=== PATIENT | female | born 1950 | race Caucasian/White ===

== ENCOUNTER 2018-03-06 08:16 | Day surgery (SDC) | payer MEDICARE, OTHER ==
[~2018-03-06] VITALS: Ht 160 cm; Wt 80.0 kg
[~2018-03-06 08:16] MED LIST: CHOLESTEROL LOWERING; CODACE30 PO; Calcium Carbon500 M1; IBUP400; INHALER; MEDICAL MARIJUANA; OXYC5 PO
== END 2018-03-06 11:03 | disposition home or self-care (01) ==
LOC: ORSCSDS 08:16
PROVIDERS: Internal Medicine Gastroenterology
PROC: 0DBN8ZX Excision of Sigmoid Colon, Via Natural or Artificial Opening Endoscopic, Diagnostic (ICD-10-PCS; principal; 2018-03-06 10:00)
PROC: 0DBM8ZX Excision of Descending Colon, Via Natural or Artificial Opening Endoscopic, Diagnostic (ICD-10-PCS; principal; 2018-03-06 10:00)
DX: Z85.048 Personal history of other malignant neoplasm of rectum, rectosigmoid junction, and anus (principal); D12.4 Benign neoplasm of descending colon; K63.5 Polyp of colon; E78.5 Hyperlipidemia, unspecified; I10 Essential (primary) hypertension; Z86.010 Personal history of colon polyps; F17.210 Nicotine dependence, cigarettes, uncomplicated; Z79.899 Other long term (current) drug therapy
CPT/HCPCS: 88305

== ENCOUNTER 2022-04-08 09:45 | Day surgery (SDC) | payer MEDICARE, OTHER ==
[~2022-04-08] VITALS: Ht 160 cm; Wt 73.7 kg
[~2022-04-08 09:45] MED LIST changes: +PRAV20 PO; +TUDORZA PRESS400 MC1
--- NOTE | 2022-04-08 10:31 | NUR ---
04/08/22 Prema Scott @ 1027, WILNER @ 2352
--- NOTE | 2022-04-08 11:22 | NUR ---
04/08/22 1122 MADAI HENRY ASSISTED PT DIRECTLY INTO WC THIS IS WHAT SHE USES AT HOME.
== END 2022-04-08 11:30 | disposition home or self-care (01) ==
LOC: ORSCSDS 09:45
PROVIDERS: Ophthalmology
PROC: 08RJ3JZ Replacement of Right Lens with Synthetic Substitute, Percutaneous Approach (ICD-10-PCS; principal; 2022-04-08 11:00)
DX: H25.13 Age-related nuclear cataract, bilateral (principal); Z85.038 Personal history of other malignant neoplasm of large intestine; F17.210 Nicotine dependence, cigarettes, uncomplicated; Z79.899 Other long term (current) drug therapy
CPT/HCPCS: J2001; J2250; J3010; J3301; J7040; V2632

== ENCOUNTER 2022-04-12 07:34 | Emergency (ER) | payer MEDICARE, OTHER ==
[~2022-04-12] VITALS: Ht 160 cm; Wt 73.5 kg
[2022-04-12 09:26] LABS: Hemoglobin 9.2 g/dL (11.5-16.0)
[2022-04-12 19:25] LABS: Influenza A, PCR NEGATIVE (NEGATIVE); Influenza B, PCR NEGATIVE (NEGATIVE); Resp Syncytial Virus, PCR NEGATIVE (NEGATIVE); SARS-Cov-2 (COVID-19) PCR, MMC NEGATIVE (NEGATIVE)
== END 2022-04-12 20:10 | disposition short-term general hospital (02) ==
LOC: ER 07:34
PROVIDERS: Emergency Medicine; Family Medicine
DX: T83.098A Other mechanical complication of other urinary catheter, initial encounter (principal); R33.9 Retention of urine, unspecified; R31.9 Hematuria, unspecified; Z93.3 Colostomy status; F17.210 Nicotine dependence, cigarettes, uncomplicated; Y82.9 Unspecified medical devices associated with adverse incidents; Z20.822 Contact with and (suspected) exposure to COVID-19
CPT/HCPCS: 0241U; 51702; 85014; 85018

== ENCOUNTER 2022-04-29 09:46 | Day surgery (SDC) | payer MEDICARE, OTHER ==
[~2022-04-29] VITALS: Ht 160 cm; Wt 72.2 kg
--- NOTE | 2022-04-29 10:09 | NUR ---
04/29/22 1009 Jacqueline Hernandez LEFT EYE @ 1005 WILNER LEFT EYE @ 1007 BY [facility].RAIMUNDO
== END 2022-04-29 12:02 | disposition home or self-care (01) ==
LOC: ORSCSDS 09:46
PROVIDERS: Ophthalmology
PROC: 08RK3JZ Replacement of Left Lens with Synthetic Substitute, Percutaneous Approach (ICD-10-PCS; principal; 2022-04-29 11:00)
DX: H25.12 Age-related nuclear cataract, left eye (principal); Z96.1 Presence of intraocular lens; H52.4 Presbyopia; I63.9 Cerebral infarction, unspecified; G81.91 Hemiplegia, unspecified affecting right dominant side; Z79.899 Other long term (current) drug therapy; F17.210 Nicotine dependence, cigarettes, uncomplicated
CPT/HCPCS: J2001; J2250; J3010; J3301; J7040; V2632

== ENCOUNTER → 2023-07-21 | Outpatient (CLI) | payer MEDICARE, OTHER ==
[2023-07-21 14:53] LABS: Source, Urine Clean Catch
[2023-07-21 17:57] LABS: Appearance, Urine Clear (Clear); Bilirubin, Urine Neg (Neg); Blood, Urine Neg (Neg); Glucose Qualitative, Urine Neg (Neg); Ketones, Urine Neg (Neg); Leukocyte Esterase, Urine Neg (Neg); Nitrite, Urine Neg (Neg); Protein, Urine Neg (Neg); Specific Gravity, Urine 1.015 (1.003-1.022); Urobilinogen, Urine NORM (Normal); pH, Urine 6.5 (5.0-8.0)
[2023-07-21 18:17] LABS: Color, Urine Pale Yellow (P-Yellow)
== END | disposition home or self-care (01) ==
LOC: LAB SHORT 11:35 → LAB 11:35
PROVIDERS: Nurse Practitioner Family
DX: I10 Essential (primary) hypertension (principal)
CPT/HCPCS: 81003

== ENCOUNTER 2024-04-15 22:27 | Inpatient (IN) | payer MEDICARE, OTHER ==
[~2024-04-15] VITALS: Ht 160 cm; Wt 77.1 kg
[2024-04-15 23:14] LABS: BASOPHILS ABSOLUTE AUTO 0.04 K/mm3 (0.00-0.23); BASOPHILS PERCENT AUTO 0 % (0-2); EOSINOPHILS ABSOLUTE AUTO 0.03 K/mm3 (0.00-0.68); EOSINOPHILS PERCENT AUTO 0 % (0-6); Hematocrit 44.8 % (33.0-51.0); Hemoglobin 15.3 g/dL (11.5-16.0); IMMATURE GRAN ABSOLUTE AUTO 0.06 K/mm3 (0.00-0.10); IMMATURE GRAN PERCENT AUTO 1 % (0-1); LYMPHOCYTES ABSOLUTE AUTO 1.33 K/mm3 (0.84-5.20); LYMPHOCYTES PERCENT AUTO 12 % (21-46); MONOCYTES ABSOLUTE AUTO 0.82 K/mm3 (0.16-1.47); MONOCYTES PERCENT AUTO 7 % (4-13); Mean Corpuscular HGB 30.8 pg (26.0-34.0); Mean Corpuscular HGB Conc 34.2 g/dL (31.5-36.5); Mean Corpuscular Volume 90 fL (80-100); Mean Platelet Volume 9.9 fL (9.1-12.4); NEUTROPHILS ABSOLUTE AUTO 9.32 K/mm3 (1.96-9.15); NEUTROPHILS PERCENT AUTO 80 % (41-73); Platelet Count 402 K/mm3 (150-400); RDW Coefficient Variation 12.7 % (11.7-14.2); RDW Standard Deviation 42.1 fL (35.1-46.3); Red Blood Cell Count 4.97 M/mm3 (3.80-5.20)
[2024-04-15 23:32] LABS: Albumin, Blood 3.7 g/dL (3.4-5.0); Albumin/Globulin Ratio 0.9 (0.8-1.8); Bilirubin, Total 0.8 mg/dL (0.1-1.0); Bun/Creatinine Ratio 45.9 (12.0-20.0); Calcium, Blood 10.1 mg/dL (8.5-10.1); Creatinine, Blood 0.74 mg/dL (0.40-1.00); Globulin, Blood 3.9 g/dL (2.2-4.0); Magnesium, Blood 2.1 mg/dL (1.6-2.4); Potassium, Blood 3.4 mmol/L (3.5-5.5); Total Protein, Blood 7.6 g/dL (6.4-8.2)
[2024-04-15] MEDS ORDERED: Ondansetron HCl 2 MG / ML 2ML Vial IV ONE (23:40)
[2024-04-15] MEDS ORDERED: HYDROmorphone HCl/Pf 1MG SYR IV ONE (23:40)
[2024-04-15] MEDS ORDERED: Lactated Ringer's 1,000 ML IV ONE (23:40)
[2024-04-16 01:24] LABS: Source, Urine Clean Catch
[2024-04-16 01:27] LABS: Bilirubin, Urine Neg (Neg); Blood, Urine 3+ (Neg); Glucose Qualitative, Urine Neg (Neg); Ketones, Urine 3+ (Neg); Leukocyte Esterase, Urine 1+ (Neg); Nitrite, Urine Neg (Neg); Protein, Urine 2+ (Neg); Urobilinogen, Urine NORM (Normal); pH, Urine 6.5 (5.0-8.0)
[2024-04-16 01:28] LABS: Appearance, Urine Clear (Clear); Color, Urine Yellow (P-Yellow)
[2024-04-16 01:47] LABS: Bacteria Rare /hpf; Red Blood Cells, Urine 0-2 /hpf (0-2); Squamous Epithelial Cells Few /hpf (Few); White Blood Cells, Urine 0-2 /hpf (0-5)
[2024-04-16] MEDS ORDERED: FentaNYL Citrate 50 MCG/ML 2 ML Injection IV PRN (04:10)
[2024-04-16] MEDS ORDERED: Ondansetron HCl 2 MG / ML 2ML Vial IV PRN (04:10)
[2024-04-16] MEDS ORDERED: NS 1,000 ML IV SCH ×2 (04:10→16:55)
[2024-04-16] MEDS ORDERED: Potassium Chloride 40 MEQ in NS 250 ML IV STA (06:17)
[2024-04-16 09:50] VITALS: BP 143/54
--- NOTE | 2024-04-16 10:47 | NUR ---
ADMISSION: REPORT RECEIVED FROM ED RN. PT TO UNIT AT ABOUT 1000, A/O, VSS. PT TRANSFERED FROM BED TO [facility] WITH 2 PERSON ASSIST. NGT TO ALEXI, MICKI AMT BROWN OUTPUT. PT DENIES N/V OR PAIN AT THIS TIME. OSTOMY AT LLQ INTACT, CAN FEEL HARDENED STOOL. BAG IS NOT SEE-THROUGH. PT ORIENTED TO ROOM AND CALL LIGHT, INSTRUCTED TO USE CALL LIGHT FOR OOB ASSISTANCE. ADMISSION QUESTIONS, MED REC COMPLETED. REPORT PASSED TO JAMIN DOWELL
[2024-04-16 12:22] LABS: BASOPHILS ABSOLUTE AUTO 0.02 K/mm3 (0.00-0.23); BASOPHILS PERCENT AUTO 0 % (0-2); EOSINOPHILS ABSOLUTE AUTO 0.01 K/mm3 (0.00-0.68); EOSINOPHILS PERCENT AUTO 0 % (0-6); Hematocrit 41.9 % (33.0-51.0); IMMATURE GRAN ABSOLUTE AUTO 0.03 K/mm3 (0.00-0.10); IMMATURE GRAN PERCENT AUTO 0 % (0-1); LYMPHOCYTES ABSOLUTE AUTO 0.87 K/mm3 (0.84-5.20); LYMPHOCYTES PERCENT AUTO 11 % (21-46); MONOCYTES ABSOLUTE AUTO 0.66 K/mm3 (0.16-1.47); MONOCYTES PERCENT AUTO 8 % (4-13); Mean Corpuscular HGB 30.6 pg (26.0-34.0); Mean Corpuscular HGB Conc 33.4 g/dL (31.5-36.5); Mean Corpuscular Volume 92 fL (80-100); Mean Platelet Volume 9.3 fL (9.1-12.4); NEUTROPHILS ABSOLUTE AUTO 6.44 K/mm3 (1.96-9.15); NEUTROPHILS PERCENT AUTO 80 % (41-73); Platelet Count 329 K/mm3 (150-400); RDW Coefficient Variation 12.6 % (11.7-14.2); RDW Standard Deviation 42.3 fL (35.1-46.3); Red Blood Cell Count 4.58 M/mm3 (3.80-5.20); White Blood Cell Count 8.03 K/mm3 (4.00-11.30)
[2024-04-16 12:41] LABS: Albumin/Globulin Ratio 0.9 (0.8-1.8); Bilirubin, Total 0.6 mg/dL (0.1-1.0); Bun/Creatinine Ratio 31.9 (12.0-20.0); Calcium, Blood 9.6 mg/dL (8.5-10.1); Creatinine, Blood 0.85 mg/dL (0.40-1.00); Globulin, Blood 3.3 g/dL (2.2-4.0); Potassium, Blood 3.8 mmol/L (3.5-5.5); Total Protein, Blood 6.3 g/dL (6.4-8.2)
--- NOTE | 2024-04-16 15:41 | NUR ---
Patient is lying in bed and alert. She tells me about her medical conditions and the struggles that she has had. She informs me that she has no cheondoism preferences and that she is inspired and strengthened by her family. Patient discribes what it is like to be her in this season and how she has darker moments. We explore ways to manage those challenging times better. SHe voices appreciation for the gentle certified credit counselor.
[2024-04-16 16:27] VITALS: BP 145/56
--- NOTE | 2024-04-16 17:45 | NUR ---
SHIFT SUMMARY; PATIENT ER ADMIT THIS AM AT SHIFT CHANGE. SHE HAS A COLOSTOMY AND IS ADMITTED FOR A SBO. NONSURGICAL PER REPORT. SHE HAS AN NG TUBE PRESENT AND BLACK DRAINAGE NOTED IN SUCTION CANISTER. OK FOR ICE CHIPS PER . IV FLUIDS TO INFUSE ANOTHER 2 BAGS NS AT 100ML/HR ORDERED. PATIENT IS AO 4. SCABS TO LOWER EXTREMITIES IN VARIOUS STAGES OF HEALING. LUNGS ARE CLEAR TO AUSCULTATION. PATIENT REMAINS NPO. DENIES ANY PAIN OR DISCOMFRT. USES CALL LIGHT APPROPRIATELY. ONE PERSON ASSIST TO BEDSIDE COMMODE.
[2024-04-16 21:20] VITALS: BP 134/50
[2024-04-17 05:39] VITALS: BP 147/55
[2024-04-17 06:03] LABS: BASOPHILS ABSOLUTE AUTO 0.04 K/mm3 (0.00-0.23); BASOPHILS PERCENT AUTO 1 % (0-2); EOSINOPHILS ABSOLUTE AUTO 0.08 K/mm3 (0.00-0.68); EOSINOPHILS PERCENT AUTO 1 % (0-6); Hematocrit 38.2 % (33.0-51.0); Hemoglobin 12.4 g/dL (11.5-16.0); IMMATURE GRAN ABSOLUTE AUTO 0.05 K/mm3 (0.00-0.10); IMMATURE GRAN PERCENT AUTO 1 % (0-1); LYMPHOCYTES ABSOLUTE AUTO 1.48 K/mm3 (0.84-5.20); LYMPHOCYTES PERCENT AUTO 19 % (21-46); MONOCYTES ABSOLUTE AUTO 0.67 K/mm3 (0.16-1.47); MONOCYTES PERCENT AUTO 9 % (4-13); Mean Corpuscular HGB 30.6 pg (26.0-34.0); Mean Corpuscular HGB Conc 32.5 g/dL (31.5-36.5); Mean Corpuscular Volume 94 fL (80-100); Mean Platelet Volume 9.3 fL (9.1-12.4); NEUTROPHILS PERCENT AUTO 71 % (41-73); Platelet Count 329 K/mm3 (150-400); RDW Coefficient Variation 12.6 % (11.7-14.2); RDW Standard Deviation 43.8 fL (35.1-46.3); Red Blood Cell Count 4.05 M/mm3 (3.80-5.20); White Blood Cell Count 7.92 K/mm3 (4.00-11.30)
[2024-04-17 06:39] LABS: Albumin, Blood 2.7 g/dL (3.4-5.0); Albumin/Globulin Ratio 0.9 (0.8-1.8); Bilirubin, Total 0.6 mg/dL (0.1-1.0); Bun/Creatinine Ratio 34.6 (12.0-20.0); Calcium, Blood 8.6 mg/dL (8.5-10.1); Creatinine, Blood 0.69 mg/dL (0.40-1.00); Potassium, Blood 3.2 mmol/L (3.5-5.5); Total Protein, Blood 5.7 g/dL (6.4-8.2)
[2024-04-17 07:46] VITALS: BP 160/54
[2024-04-17] MEDS ORDERED: Potassium Chloride 40 MEQ in NS 250 ML IV ONE (08:50)
[2024-04-17 15:28] VITALS: BP 154/65
--- NOTE | 2024-04-17 15:39 | NUR ---
SHIFT SUMMARY; PATIENT RECEIVED A IV CONTRAST SMALL BOWEL FOLLOW THROUGH XRAY. NG TUBE IS DISCONNECTED AT THIS TIME PER RADIOLOGY AND WILL NOT BE RECONNECTED UNTIL AFTER ALL REPEAT XRAYS. PATIENT MEDICATED WITH FENTANYL X 2 50MCG IVP FOR SEVERE PAIN. AND WITH ZOFRAN 4MG IVP FOR NAUSEA. 1800ML OUT IN SUCTION CANNISTER DARK BLACK FLUIDS. PATIENT IS NOTED TO HAVE SMALL FIRM STOOL IN HER OSTOMY BAG. PER HE WILL RE CHECK IN THE AM TO SEE IF SURGERY IS INDICATED. VITAL SIGNS REMAIN STABLE AND PATIENT IS AO X 4. IV FLUIDS INFUSING ORDERED AND THEN WILL BE SALINE LOCKED AFTER 2ND BAG NS ADMIN. OK FOR ICE CHIPS PER GIOVANI MAYA.
[2024-04-17 19:24] VITALS: BP 163/60
[2024-04-18] VITALS (19 sets, daily range): BP systolic 107–152; BP diastolic 40–86
--- NOTE | 2024-04-18 04:06 | NUR ---
R DEVELOPER SUMMARY VSS. NG TUBE FOR ABD SUCTIONING CONTINUES FOR PT DX OF SMALL BOWEL OBSTRUCTION. TOLERATES ICE CHIPS FOR ORAL DRYNESS. RETURNS OF SUCTIONING ARE DARK BROWNISH FLUIDS. ABD SOFT TO TOUCH. ALERT AND ORIENTED. HAS BEEN RESTING QUIETLY WITH OCCASIONAL INTERRUPTION TO VOID AND/OR REQUEST PAIN MEDS. SEE MAR FOR DETAILS. ABLE TO REPOSITION SELF IN BED FOR COMFORT AND SKIN MAINTENANCE. CALL LIGHT IN REACH, RAILS UP X 2 AND BED IN LOW POSITION FOR SAFETY. WILL CONTINUE TO MONITOR
[2024-04-18] MEDS ORDERED: NS 1,000 ML IV SCH (09:05)
[2024-04-18] MEDS ORDERED: CeFAZolin Sodium 2,000 MG in NS 100 ML IV SCH (09:50)
[2024-04-18] MEDS ORDERED: NS 500 ML IV SCH (10:10)
[2024-04-18 10:19] LABS: Hematocrit 43.9 % (33.0-51.0); Hemoglobin 14.4 g/dL (11.5-16.0); Mean Corpuscular HGB 30.6 pg (26.0-34.0); Mean Corpuscular HGB Conc 32.8 g/dL (31.5-36.5); Mean Corpuscular Volume 93 fL (80-100); Mean Platelet Volume 9.1 fL (9.1-12.4); Platelet Count 386 K/mm3 (150-400); RDW Coefficient Variation 12.4 % (11.7-14.2)
[2024-04-18 10:39] LABS: Albumin, Blood 3.1 g/dL (3.4-5.0); Albumin/Globulin Ratio 0.8 (0.8-1.8); Bilirubin, Total 0.5 mg/dL (0.1-1.0); Bun/Creatinine Ratio 32.9 (12.0-20.0); Calcium, Blood 9.4 mg/dL (8.5-10.1); Creatinine, Blood 0.76 mg/dL (0.40-1.00); Globulin, Blood 3.7 g/dL (2.2-4.0); Potassium, Blood 3.5 mmol/L (3.5-5.5); Total Protein, Blood 6.8 g/dL (6.4-8.2)
[2024-04-18] MEDS ORDERED: Lactated Ringer's 1,000 ML IV SCH (10:40)
[2024-04-18 10:42] LABS: BAND PERCENT MAN 4 % (0-8); BASOPHILS PERCENT MAN 0 % (0-2); EOSINOPHILS ABSOLUTE MAN 0.08 K/mm3 (0.00-0.68); EOSINOPHILS PERCENT MAN 1 % (0-6); LYMPHOCYTES ABSOLUTE MAN 1.21 K/mm3 (0.84-5.20); LYMPHOCYTES PERCENT MAN 15 % (21-46); MONOCYTES ABSOLUTE MAN 0.72 K/mm3 (0.16-1.47); MONOCYTES PERCENT MAN 9 % (4-13); NEUTROPHILS ABSOLUTE MAN 6.07 K/mm3 (1.96-9.15); SEG NEUTROPHILS PERCENT MAN 71 % (41-73); TOTAL CELLS COUNTED 100
[2024-04-18] MEDS ORDERED: Ipratropium/Albuterol SulF 2.5-0.5MG/3 ML Amp INH ONE (10:55)
[2024-04-18] MEDS ORDERED: Bupivacaine 0.5% Inj 50 ML Vial ONE (11:17)
--- NOTE | 2024-04-18 11:31 | NUR ---
PT HERE FROM 324 VIA ANGELA. 22 G IV IN LAC FLUSHES EASILY BUT DOES NOT RUN WELL TO GRAVITY. 18 G IV PLACED IN RFA. PT W/ WHEEZES IN BASES AND 02@ 90% ON RA. 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 Pt verbalizes understanding. History, Chart, Medications and Allergies reviewed before start of procedure.Patient confirms NPO status and agrees with scheduled surgery.
[2024-04-18] MEDS ORDERED: FentaNYL Citrate 50 MCG/ML 5 ML Injection ONE ×2 (11:43→14:33)
[2024-04-18] MEDS ORDERED: propofoL 20 ML IV ONE (11:44)
[2024-04-18] MEDS ORDERED: Ondansetron HCl 2 MG / ML 2ML Vial ONE (11:50)
[2024-04-18] MEDS ORDERED: Ketorolac Tromethamine 30mg Vial ONE (11:50)
[2024-04-18] MEDS ORDERED: Dexamethasone Sod Phos 10 MG/ML 1ML VIAL ONE (11:50)
[2024-04-18] MEDS ORDERED: Rocuronium Bromide 10 MG/ML 5ML Injection IV ONE ×2 (12:57)
--- NOTE | 2024-04-18 15:33 | NUR ---
PT TAKEN TO SURGERY 1042, HAD STARTED 500ML NS BOLUS, RECEIVED 200ML. HAD RECEIVED FENT 50MCG AT 0900. SL TO LAC FLUSHES WELL. SLIDE TX BED TO STRETCHER. NG DISCONNECTED. 1L EMPTIED THIS AM, BILE SECRETIONS. PT DENIED NAUSEA AND PAIN WAS CONTROLLED WITH FENT.
[2024-04-18] MEDS ORDERED: Sugammadex Sodium 200 MG/2ML SDV (100 MG/ML) ONE (15:39)
--- NOTE | 2024-04-18 16:54 | NUR ---
ATTEMPTED TO GET REPORT FROM MEDICAL FLOOR RN AT THIS TIME, NO RETURN CALL
--- NOTE | 2024-04-18 17:44 | NUR ---
POST OP: REPORT RECEIVED FROM ANTIQUE AUTOMOBILES REPAIRER. PT TO UNIT AT 1705. PT IS A/O, VSS. PT DENIES PAIN OR N/V AT THIS TIME. NGT SECURE TO NOSE, LIS STARTED AND BROWN OUTPUT NOTED. ABD SAQIB COMPRESSED AND CDI AND COLOSTOMY WNL, NO OUTPUT NOTED TO COLOSTOMY. CARLOS HAS YELLOW URINE AND DRAINING TO GRAVITY. PT GIVEN CALL LIGHT AND ORIENTED TO ROOM.
[2024-04-19 04:35] VITALS: BP 148/51
--- NOTE | 2024-04-19 05:38 | NUR ---
SHIFT SUMMARY POD 1 EX LAP WITH HERNIA REPAIR, COLECTOMY AND HÉCTOR PT ABLE TO SLEEP DURING THE NIGHT. DENIES ANY PAIN DURING THE NIGHT. TOLERATING SIPS AND CHIPS. PT HAS HAD NO OUTPUT OR GAS IN COLOSTOMY. CARLOS DRAINING YELLOW URINE TO GRAVITY. PT HAS NOT BEEN OOB YET. VSS. PY ON 1L NC FOR SUPPORT. NO OTHER CONCERNS AT THIS, CALL LIGHT WITHIN REACH
[2024-04-19 07:51] VITALS: BP 133/49
[2024-04-19] MEDS ORDERED: DEXTROMETHORPHAN/BENZOCAINE 1 EACH LOZENGE MT PRN (09:05)
[2024-04-19] MEDS ORDERED: Phenol/Sodium Phenolate Oral Spray 180 ML MM PRN (09:05)
[2024-04-19 09:41] LABS: Hematocrit 37.4 % (33.0-51.0); Hemoglobin 12.2 g/dL (11.5-16.0); Mean Corpuscular HGB 30.5 pg (26.0-34.0); Mean Corpuscular HGB Conc 32.6 g/dL (31.5-36.5); Mean Corpuscular Volume 94 fL (80-100); Mean Platelet Volume 9.3 fL (9.1-12.4); Platelet Count 332 K/mm3 (150-400); RDW Coefficient Variation 12.5 % (11.7-14.2); RDW Standard Deviation 42.6 fL (35.1-46.3); White Blood Cell Count 8.06 K/mm3 (4.00-11.30)
[2024-04-19 10:06] LABS: BAND PERCENT MAN 7 % (0-8); BASOPHILS PERCENT MAN 0 % (0-2); EOSINOPHILS PERCENT MAN 0 % (0-6); LYMPHOCYTES ABSOLUTE MAN 0.72 K/mm3 (0.84-5.20); LYMPHOCYTES PERCENT MAN 9 % (21-46); MONOCYTES ABSOLUTE MAN 0.72 K/mm3 (0.16-1.47); MONOCYTES PERCENT MAN 9 % (4-13); SEG NEUTROPHILS PERCENT MAN 75 % (41-73); TOTAL CELLS COUNTED 100
[2024-04-19 10:25] LABS: Albumin, Blood 2.1 g/dL (3.4-5.0); Albumin/Globulin Ratio 0.7 (0.8-1.8); Bilirubin, Total 0.4 mg/dL (0.1-1.0); Bun/Creatinine Ratio 39.5 (12.0-20.0); Creatinine, Blood 0.58 mg/dL (0.40-1.00); Globulin, Blood 3.2 g/dL (2.2-4.0); Potassium, Blood 3.1 mmol/L (3.5-5.5); Total Protein, Blood 5.3 g/dL (6.4-8.2)
--- NOTE | 2024-04-19 10:52 | NUR ---
PT HAS OSTOMY IN PLACE TO LLQ WHICH WAS FROM PRIOR SURGERY, STOMA PINK. SCANT BROWN LIQUID DRAINAGE IN BAG
[2024-04-19] MEDS ORDERED: Potassium Chloride 40 MEQ in NS 250 ML IV ONE (12:15)
[2024-04-19] MEDS ORDERED: Benzocaine Oral Spray 0.5ML UD MT PRN (13:00)
[2024-04-19 15:30] VITALS: BP 127/45
--- NOTE | 2024-04-19 17:19 | NUR ---
PT SITTING UP IN CHAIR FOR THE LAST SEVERAL HOURS. PT REPORTS PAIN CONTROLLED WITH IV MEDS, DISCUSSED WITH PT TO REQUEST MEDS WHEN PAIN STARTS TO INCREASE SHE HAS WAITED UNTIL HER PAIN IS 7-8. SAQIB IN PLACE WITH SCANT DRIED BLOODY DRAINAGE. ABD GAUZE SITES X3 CLEAN DRY AND INTACT. NG WITH NO OUTPUT THIS SHIFT, CARLOS WITH CLEAR YELLOW URINE
[2024-04-19 19:05] VITALS: BP 150/57
[2024-04-20 02:26] VITALS: BP 143/49
--- NOTE | 2024-04-20 04:30 | NUR ---
SHIFT SUMMARY POD 2 SB RESECTION, HERNIA REPAIR AND HÉCTOR PT ABLE TO REST DURING THE NIGHT. PT WANTED TO STAY IN RECLINER FOR THE NIGHT. PAIN MANAGED PER EMAR. CARLOS DRAINING TO GRAVITY, YELLOW URINE. OSTOMY HAVING BROWN OUTPUT, WITH GAS. PT HAS X3 LAP SITES WITH GAUZE AND TEG ALL C/D/I. MIDLINE INSICION WITH SAQIB HAS SOME SLIGHT DRAINAGE AT THE BOTTOM, SAQIB STILL COMPRESSED. NG TUBE HAVING VERY LITTLE OUTPUT. TOLERATING SIPS AND CHIPS. VSS, NO OTHER CONCERNS AT THIS TIME, CALL LIGHT WITHIN REACH
[2024-04-20 04:43] LABS: Hematocrit 34.3 % (33.0-51.0); Hemoglobin 10.9 g/dL (11.5-16.0); Mean Corpuscular HGB 30.1 pg (26.0-34.0); Mean Corpuscular HGB Conc 31.8 g/dL (31.5-36.5); Mean Corpuscular Volume 95 fL (80-100); Mean Platelet Volume 9.5 fL (9.1-12.4); Platelet Count 312 K/mm3 (150-400); RDW Coefficient Variation 12.7 % (11.7-14.2); RDW Standard Deviation 43.9 fL (35.1-46.3); Red Blood Cell Count 3.62 M/mm3 (3.80-5.20); White Blood Cell Count 10.69 K/mm3 (4.00-11.30)
[2024-04-20 05:17] LABS: Albumin, Blood 1.8 g/dL (3.4-5.0); Albumin/Globulin Ratio 0.6 (0.8-1.8); Bilirubin, Total 0.4 mg/dL (0.1-1.0); Bun/Creatinine Ratio 25.8 (12.0-20.0); Calcium, Blood 7.4 mg/dL (8.5-10.1); Creatinine, Blood 0.5 mg/dL (0.40-1.00); Globulin, Blood 3.1 g/dL (2.2-4.0); Potassium, Blood 3.2 mmol/L (3.5-5.5); Total Protein, Blood 4.9 g/dL (6.4-8.2)
[2024-04-20 05:20] LABS: BAND PERCENT MAN 9 % (0-8); BASOPHILS PERCENT MAN 0 % (0-2); EOSINOPHILS ABSOLUTE MAN 0.21 K/mm3 (0.00-0.68); EOSINOPHILS PERCENT MAN 2 % (0-6); LYMPHOCYTES ABSOLUTE MAN 0.96 K/mm3 (0.84-5.20); LYMPHOCYTES PERCENT MAN 9 % (21-46); METAMYELOCYTE ABSOLUTE MAN 0.21 K/mm3 (0.00-0.00); METAMYELOCYTE PERCENT MAN 2 % (0-0); MONOCYTES ABSOLUTE MAN 0.85 K/mm3 (0.16-1.47); MONOCYTES PERCENT MAN 8 % (4-13); MYELOCYTE PERCENT MAN 1 % (0-0); NEUTROPHILS ABSOLUTE MAN 8.33 K/mm3 (1.96-9.15); SEG NEUTROPHILS PERCENT MAN 69 % (41-73); TOTAL CELLS COUNTED 100
[2024-04-20 07:19] VITALS: BP 127/43
[2024-04-20] MEDS ORDERED: Potassium Chloride 40 MEQ in NS 250 ML IV ONE (08:35)
[2024-04-20] MEDS ORDERED: OxyCODONE HCL 5 MG TAB PO PRN (09:10)
[2024-04-20] MEDS ORDERED: Acetaminophen 325 MG TABLET PO PRN (09:10)
[2024-04-20] MEDS ORDERED: Potassium Chloride 20 MEQ/15 ML UDC PO ONE ×2 (10:00→12:00)
[2024-04-20 14:06] VITALS: BP 156/55
[2024-04-20] MEDS ORDERED: Calcium Carbonate 500 MG Tab Chew PO PRN (15:10)
[2024-04-20] MEDS ORDERED: Famotidine 20 MG Tab PO SCH (16:00)
--- NOTE | 2024-04-20 16:28 | NUR ---
SHIFT SUMMARY POD2 MIDLINE SAQIB/LAP SITES CDI. A&OX4, VSS/RA, OSTOMY WITH LIQUID BROWN OUPUT, BRENDA PO FULL LIQUID DIET/ADV TO REG FOR DINNER, VOIDING, AMB:2PP STAND PIVOT - UP TO CHAIR, PAIN MANAGED, IV SL. WILL REPORT TO ONCOMING NOC RN.
[2024-04-20 18:57] VITALS: BP 151/58
[2024-04-20] MEDS ORDERED: Lactobacil 2-S.Thermo-Bifido 1 1 Cap PO SCH (21:00)
[2024-04-21 02:05] VITALS: BP 138/52
--- NOTE | 2024-04-21 06:11 | NUR ---
SHIFT SUMMARY POD 3 SB RESECTION, HERNIA REPAIR AND HÉCTOR PT ABLE TO REST DURING THE NIGHT. PAIN MANAGED PER EMAR. TOLERAING PO INTAKE. VOIDING. OSTOMY HAVING BROWN LIQUID STOOL OUT. LAP SITES AND MIDLINE SAQIB ARE ALL C/D/I. PT HAS REMAINED ON RA ALL NIGHT. VSS NO OTHER CONCERNS AT THIS TIME, CALL LIGHT WITHIN REACH
[2024-04-21 07:02] LABS: BASOPHILS ABSOLUTE AUTO 0.06 K/mm3 (0.00-0.23); BASOPHILS PERCENT AUTO 1 % (0-2); EOSINOPHILS ABSOLUTE AUTO 0.26 K/mm3 (0.00-0.68); EOSINOPHILS PERCENT AUTO 2 % (0-6); Hematocrit 36.6 % (33.0-51.0); Hemoglobin 11.9 g/dL (11.5-16.0); IMMATURE GRAN ABSOLUTE AUTO 0.44 K/mm3 (0.00-0.10); IMMATURE GRAN PERCENT AUTO 4 % (0-1); LYMPHOCYTES ABSOLUTE AUTO 0.98 K/mm3 (0.84-5.20); LYMPHOCYTES PERCENT AUTO 9 % (21-46); MONOCYTES ABSOLUTE AUTO 0.69 K/mm3 (0.16-1.47); MONOCYTES PERCENT AUTO 6 % (4-13); Mean Corpuscular HGB 30.5 pg (26.0-34.0); Mean Corpuscular HGB Conc 32.5 g/dL (31.5-36.5); Mean Corpuscular Volume 94 fL (80-100); Mean Platelet Volume 9.1 fL (9.1-12.4); NEUTROPHILS ABSOLUTE AUTO 8.87 K/mm3 (1.96-9.15); NEUTROPHILS PERCENT AUTO 79 % (41-73); Platelet Count 326 K/mm3 (150-400); RDW Coefficient Variation 12.7 % (11.7-14.2); RDW Standard Deviation 43.8 fL (35.1-46.3)
[2024-04-21 07:13] VITALS: BP 132/60
[2024-04-21 07:28] LABS: Magnesium, Blood 1.7 mg/dL (1.6-2.4)
[2024-04-21 07:31] LABS: Anion Gap 15 mmol/L (3-11); Blood Urea Nitrogen 10 mg/dL (8-24); CO2, Blood 24 mmol/L (21-32); Chloride, Blood 99 mmol/L (98-108); Creatinine, Blood 0.53 mg/dL (0.40-1.00); Glomerular Filtration Rate 97 (60-); Glucose, Blood 83 mg/dL (70-99); Phosphorus, Blood 0.8 mg/dL (2.5-4.9); Potassium, Blood 3.3 mmol/L (3.5-5.5); Sodium, Blood 135 mmol/L (136-145)
[2024-04-21] MEDS ORDERED: Mag Sulfate 1 GM/D5% 100ML 100 ML IV STA (08:19)
[2024-04-21] MEDS ORDERED: Potassium Phosphate Dibasic 30 MM in Dextrose 5% 500 ML IV STA (08:20)
[2024-04-21] MEDS ORDERED: Sodium Phosphate 10 MM in Dextrose 5% 250 ML IV STA (08:20)
[2024-04-21] MEDS ORDERED: NS 250 ML IV PRN (13:40)
--- NOTE | 2024-04-21 15:33 | NUR ---
SHIFT SUMMARY POD 3 SBO, HERNIA REPAIR, LYSIS OF ADHESIONS. DRESSING REMAINS CDI. PT REPORTS SMALL AMOUNT OF NASUEA THAT INCREASED AFTER REGULAR DIET. EATING SLOWLY AT THIS TIME AND IMPROVEMENT OF NAUSEA WITH MEDICATION. PAIN TOLERABLE PER EMAR. PT CONTINUES TO HAVE SMALL AMOUNT OF FLATUS THROUGH STOMA. VOIDING, CALLS APPROPRIATLY. REPOSITIONING SELF IN BED, WILL CALL FOR ASSISTANCE.
[2024-04-21 16:02] VITALS: BP 148/66
[2024-04-21 19:53] VITALS: BP 166/79
[2024-04-22] VITALS (11 sets, daily range): BP systolic 59–135; BP diastolic 37–68
--- NOTE | 2024-04-22 05:22 | NUR ---
SHIFT SUMMARY: AMANDA IS A&OX4. VSS, NO ACUTE EVENTS THIS SHIFT. SHE DID HAVE ONE EPISODE OF EMESIS, APPROX 1000 ML, BUT HAS DENIED N/V SINCE. SHE HAS HAD LIQUID OUTPUT THROUGH HER OSTOMY WELL FLATUS. OSTOMY PATENT. SAQIB TO MIDLINE INCISION COMPRESSED, POWERGLIDE TO ANGEL PATENT, AND SHE USES THE BEDPAN WITH A ONE-PERSON ASSIST. SHE REPORTS HAVING DIFFICULTY TOLERATING A REGULAR DIET, THAT SHE TRIED TACO MOTA YESTERDAY AND FEELS THAT IS WHAT CAUSED HER UPSET STOMACH. SHE DID STATE THAT SHE IS TOLERATING CLEARS WITHOUT DIFFICULTY. SHE IS LYING IN BED WITH THE CALL LIGHT IN REACH. WILL GIVE REPORT TO DAY SHIFT RN.
[2024-04-22 05:41] LABS: Albumin, Blood 1.9 g/dL (3.4-5.0); Anion Gap 12 mmol/L (3-11); Blood Urea Nitrogen 13 mg/dL (8-24); Bun/Creatinine Ratio 23.7 (12.0-20.0); CO2, Blood 30 mmol/L (21-32); Calcium, Blood 7.9 mg/dL (8.5-10.1); Chloride, Blood 93 mmol/L (98-108); Creatinine, Blood 0.55 mg/dL (0.40-1.00); Glomerular Filtration Rate 96 (60-); Glucose, Blood 110 mg/dL (70-99); Magnesium, Blood 1.9 mg/dL (1.6-2.4); Phosphorus, Blood 2.3 mg/dL (2.5-4.9); Potassium, Blood 3.4 mmol/L (3.5-5.5); Sodium, Blood 132 mmol/L (136-145)
[2024-04-22] MEDS ORDERED: Mag Sulfate 1 GM/D5% 100ML 100 ML IV STA (08:39)
[2024-04-22] MEDS ORDERED: Potassium Phos/Sodium Phos 250 MG PACK PO SCH ×2 (08:40→17:00)
[2024-04-22] MEDS ORDERED: Potassium Chloride 20 MEQ/15 ML UDC PO SCH ×2 (08:40→17:00)
[2024-04-22] MEDS ORDERED: NS 1,000 ML IV ONE (19:30)
[2024-04-22] MEDS ORDERED: Adenosine 3 MG/ML 2 ML Vial IV ONE (19:50)
--- NOTE | 2024-04-22 20:00 | NUR ---
RAPID RESPONSE CALLED. RAPID RESPONSE CALLED DURING SHIFT CHANGE DUE TO HYPOTENSION AND TACHYCARDIA. PT EDUCATED ON SYMPTOMS TO REPORT AND ASSURANCE GIVEN REGARDING MONITORING POST EVENT. FOR DETAILS ON CHARTER BUS DRIVER PLEASE SEE CHARTER BUS DRIVER DOCUMENTATION. PT RESTING AND VERBALIZED FEELING BETTER, CALL LIGHT IN REACH.
--- NOTE | 2024-04-22 20:35 | NUR ---
SHIFT SUMMARY POD4 EX LAP WITH HÉCTOR, Dolly/OX4, VSS UNTIL END OF SHIFT (SEE MARKETING BUDGET ANALYST DOCUMENTATION), CALLS APPROPRIEATELY, MEDICATED FOR PAIN ONCE THIS SHIFT, SOME NAUSEA THIS SHIFT WHICH SHE WAS MEDICATED FOR AND HAD NO EMESIS. MARKETING BUDGET ANALYST CALLED DURING SHIFT CHANGE R/T HEART RATE AND LOW BP (SEE MARKETING BUDGET ANALYST AND VITALS, EKG PLACED IN CHART). REPORT GIVEN TO NOC RN TO ASSUME CARE.
[2024-04-22] MEDS ORDERED: Metoprolol Tartrate 50 MG Tab PO SCH (21:00)
[2024-04-22] MEDS ORDERED: Metoprolol Tartrate 25 MG Tab PO SCH (21:00)
[2024-04-23] VITALS (9 sets, daily range): BP systolic 103–132; BP diastolic 52–68
[2024-04-23 02:48] LABS: Albumin, Blood 1.6 g/dL (3.4-5.0); Anion Gap 14 mmol/L (3-11); Blood Urea Nitrogen 22 mg/dL (8-24); Bun/Creatinine Ratio 27.2 (12.0-20.0); CO2, Blood 27 mmol/L (21-32); Calcium, Blood 7.2 mg/dL (8.5-10.1); Chloride, Blood 96 mmol/L (98-108); Creatinine, Blood 0.81 mg/dL (0.40-1.00); Glomerular Filtration Rate 76 (60-); Glucose, Blood 109 mg/dL (70-99); Magnesium, Blood 2.1 mg/dL (1.6-2.4); Potassium, Blood 3.7 mmol/L (3.5-5.5); Sodium, Blood 133 mmol/L (136-145)
--- NOTE | 2024-04-23 07:37 | NUR ---
SHIFT SUMMARY NOC. PT HAD RAPID CALLED AT START OF SHIFT, SEE DOCUMENTATION. PT A/O X4, VSS IMPROVED T/O NIGHT. PT ON TELE, NO EVENTS REPORTED. PT'S SAQIB AND LAP SITES C/D/I. OSTOMY PRODUCING OUTPUT. PT VOIDING URINE. PT RESTED WITH EYES CLOSED AND CALL LIGHT IN REACH.
[2024-04-23 08:25] LABS: Hematocrit 31.7 % (33.0-51.0); Hemoglobin 10.7 g/dL (11.5-16.0); Mean Corpuscular HGB 30.7 pg (26.0-34.0); Mean Corpuscular HGB Conc 33.8 g/dL (31.5-36.5); Mean Corpuscular Volume 91 fL (80-100); Mean Platelet Volume 9.4 fL (9.1-12.4); Platelet Count 382 K/mm3 (150-400); RDW Coefficient Variation 12.8 % (11.7-14.2); RDW Standard Deviation 42.5 fL (35.1-46.3); Red Blood Cell Count 3.49 M/mm3 (3.80-5.20); White Blood Cell Count 13.19 K/mm3 (4.00-11.30)
[2024-04-23 09:36] LABS: BAND PERCENT MAN 7 % (0-8); BASOPHILS PERCENT MAN 0 % (0-2); EOSINOPHILS PERCENT MAN 0 % (0-6); LYMPHOCYTES ABSOLUTE MAN 0.52 K/mm3 (0.84-5.20); LYMPHOCYTES PERCENT MAN 4 % (21-46); MONOCYTES ABSOLUTE MAN 0.92 K/mm3 (0.16-1.47); MONOCYTES PERCENT MAN 7 % (4-13); NEUTROPHILS ABSOLUTE MAN 11.73 K/mm3 (1.96-9.15); SEG NEUTROPHILS PERCENT MAN 82 % (41-73); TOTAL CELLS COUNTED 100
[2024-04-23] MEDS ORDERED: Adenosine 3 MG/ML 2 ML Vial IV ONE (10:59)
[2024-04-23] MEDS ORDERED: Enoxaparin 40 MG/0.4 ML SYR SC SCH (14:00)
--- NOTE | 2024-04-23 17:41 | NUR ---
SHIFT SUMMARY POD 5 EX LAP c HERNIA REPAIR & HÉCTOR. NO ACUTE CHANGES THIS SHIFT. VSS, PT ON 2L VIA NC PRN TO MAINTAIN SAT >90%, TELE - SINUS RHYTHM @ 74. PT TOLERATING FULL LIQUID DIET. VOIDING USING BEDPAN. ESTABLISHED OSTOMY c BROWN/GREEN LIQUID OUTPUT; PASSING FLATUS. MIDLINE SAQIB C/D/I. LAP SITES x3 c GAUZE/TAPE C/D/I. PT REPORTS PAIN TOLERABLE, MEDICATED PER EMAR. CARDIOLOGY CONSULTED TODAY, NO FURTHER ORDERS, CONTINUE TO MONITOR TELE. ENC MOBILITY, WHEELCHAIR BASELINE R/T R SIDED WEAKNESS. CALL LIGHT IN REACH, BED IN LOWEST POSITION, WILL REPORT TO NOC RN.
[2024-04-24 03:46] VITALS: BP 139/66
--- NOTE | 2024-04-24 04:17 | NUR ---
SUMMARY- NO ISSUES NOTED. PT REMAINED IN SR THROUGHOUT SHIFT. PT PAIN TX ORDERED W/ RELIEF. PT DRESSINGS C/D/I. OSTOMY OUTPUT SOFT BROWN STOOL. PT HAD SOME NAUSEA THAT WAS RELIEVED WITH ZOFRAN. CALL LIGHT IN REACH.
[2024-04-24 04:48] LABS: Hematocrit 30.3 % (33.0-51.0); Hemoglobin 10.1 g/dL (11.5-16.0); Mean Corpuscular HGB 30.6 pg (26.0-34.0); Mean Corpuscular HGB Conc 33.3 g/dL (31.5-36.5); Mean Corpuscular Volume 92 fL (80-100); Mean Platelet Volume 9.3 fL (9.1-12.4); Platelet Count 380 K/mm3 (150-400); RDW Coefficient Variation 12.9 % (11.7-14.2); RDW Standard Deviation 43.3 fL (35.1-46.3); White Blood Cell Count 11.56 K/mm3 (4.00-11.30)
[2024-04-24 05:04] LABS: Bun/Creatinine Ratio 25.2 (12.0-20.0); Calcium, Blood 7.2 mg/dL (8.5-10.1); Creatinine, Blood 0.56 mg/dL (0.40-1.00); Potassium, Blood 3.5 mmol/L (3.5-5.5)
[2024-04-24 05:22] LABS: BAND PERCENT MAN 4 % (0-8); BASOPHILS PERCENT MAN 0 % (0-2); EOSINOPHILS ABSOLUTE MAN 0.34 K/mm3 (0.00-0.68); EOSINOPHILS PERCENT MAN 3 % (0-6); LYMPHOCYTES % ATYPICAL MANUAL 1 % (0-0); LYMPHOCYTES ABSOLUTE MAN 1.04 K/mm3 (0.84-5.20); LYMPHOCYTES PERCENT MAN 8 % (21-46); MONOCYTES ABSOLUTE MAN 1.15 K/mm3 (0.16-1.47); MONOCYTES PERCENT MAN 10 % (4-13); NEUTROPHILS ABSOLUTE MAN 8.78 K/mm3 (1.96-9.15); PLASMA CELL ABSOLUTE MAN 0.23 K/mm3 (0.00-0.00); PLASMA CELLS PERCENT MAN 2 % (0-0); SEG NEUTROPHILS PERCENT MAN 72 % (41-73); TOTAL CELLS COUNTED 100
[2024-04-24 07:24] VITALS: BP 131/60
[2024-04-24 15:17] VITALS: BP 114/49
[2024-04-24 15:18] VITALS: BP 114/49
--- NOTE | 2024-04-24 17:15 | NUR ---
SHIFT SUMMARY POD 6 EX LAP c HERNIA REPAIR & HÉCTOR. NO ACUTE CHANGES TODAY. VSS, PT ON 1L VIA NC TO MAINTAIN SAT >90%, TELE - NSR IN 80s. TOLERATING REGULAR DIET; PT REPORTS LACTOSE INTOLERANCE & INTERMITTENT NAUSEA c INGESTIONS, FAMILY MEMBER BROUGHT IN MCDON[place]DS/ COTTAGE CHEESE/ YOGURT FOR PT. VOIDING USING BEDPAN/BSC DEPENDING ON FATIGUE LEVEL. BROWN/GREEN OUTPUT IN OSTOMY c FLATUS. MIDLINE SAQIB C/D/I, LAP SITE x3 c MUSA C/D/I JOHN. PT AMBULATES MAX 2 PERSON ASSIST STAND/PIVOT TO BSC/CHAIR c GB; HX: CHRONIC R SIDED WEAKNESS R/T CVA - PT REPORTS FEELING INCREASINGLY WEAK. PHYSCIAL THERAPY WORKED c PT TODAY, RECOMMENDED SNF. PT REFUSED SNF, STATES SHE WANTS TO D/C TO HOME c HH. CALL LIGHT IN REACH, BED IN LOWEST POSITION, WILL REPORT TO ROSA RN.
[2024-04-24 19:33] VITALS: BP 128/44
[2024-04-24] MEDS ORDERED: Pravastatin Sodium 20 MG Tab PO SCH (21:00)
[2024-04-25 04:13] VITALS: BP 118/47
--- NOTE | 2024-04-25 05:06 | NUR ---
SHIFT SUMMARY NOC. PT A/O X4. MIDLINE SAQIB C/D/I, LAP SITES WITH MUSA OPEN TO AIR. PT VOIDING URINE AND TOLERATING PO. OSTOMY PRODUCING FLATUS. PT ON TELE AND NO REPORTED EVENTS. PT RESTED WITH EYES CLOSED AND CALL LIGHT IN REACH.
[2024-04-25 05:59] LABS: Hematocrit 30.1 % (33.0-51.0); Hemoglobin 10.1 g/dL (11.5-16.0); Mean Corpuscular HGB 30.7 pg (26.0-34.0); Mean Corpuscular HGB Conc 33.6 g/dL (31.5-36.5); Mean Corpuscular Volume 92 fL (80-100); Mean Platelet Volume 9.1 fL (9.1-12.4); Platelet Count 418 K/mm3 (150-400); RDW Coefficient Variation 12.9 % (11.7-14.2); RDW Standard Deviation 43.3 fL (35.1-46.3); Red Blood Cell Count 3.29 M/mm3 (3.80-5.20); White Blood Cell Count 9.96 K/mm3 (4.00-11.30)
[2024-04-25 06:21] LABS: Bun/Creatinine Ratio 21.3 (12.0-20.0); Calcium, Blood 7.6 mg/dL (8.5-10.1); Creatinine, Blood 0.52 mg/dL (0.40-1.00); Phosphorus, Blood 2.4 mg/dL (2.5-4.9); Potassium, Blood 3.6 mmol/L (3.5-5.5)
[2024-04-25 06:35] LABS: BAND PERCENT MAN 6 % (0-8); BASOPHILS PERCENT MAN 0 % (0-2); EOSINOPHILS ABSOLUTE MAN 0.09 K/mm3 (0.00-0.68); EOSINOPHILS PERCENT MAN 1 % (0-6); LYMPHOCYTES ABSOLUTE MAN 1.09 K/mm3 (0.84-5.20); LYMPHOCYTES PERCENT MAN 11 % (21-46); METAMYELOCYTE ABSOLUTE MAN 0.09 K/mm3 (0.00-0.00); METAMYELOCYTE PERCENT MAN 1 % (0-0); MONOCYTES ABSOLUTE MAN 0.79 K/mm3 (0.16-1.47); MONOCYTES PERCENT MAN 8 % (4-13); MYELOCYTE ABSOLUTE MAN 0.19 K/mm3 (0.00-0.00); MYELOCYTE PERCENT MAN 2 % (0-0); NEUTROPHILS ABSOLUTE MAN 7.66 K/mm3 (1.96-9.15); SEG NEUTROPHILS PERCENT MAN 71 % (41-73); TOTAL CELLS COUNTED 100
[2024-04-25 07:16] VITALS: BP 111/58
[2024-04-25] MEDS ORDERED: Acetaminophen650 M1 PO (11:07)
[2024-04-25] MEDS ORDERED: OXAYDO5 M1 PO (11:08)
[2024-04-25] MEDS ORDERED: POTASSIUM PHOSPHATE PO (11:12)
--- NOTE | 2024-04-25 12:30 | NUR ---
DISCHARGE: PACKET PRINTED AND PT EDUCATED. POWERGLIDE TO ANGEL DC'D WNL, TIP INTACT. PT GIVEN DC INSTRUCTIONS AND VERBALIZED UNDERSTANDING. SCRIPT FAXED TO [facility] AND PT GIVEN PAIN SCRIPT.
== END 2024-04-25 11:45 | disposition home health service (06) | DRG 330 ==
LOC: ER 22:27 → MEDS 04-16 02:09 → SURS 04-16 02:09 → ERHOLD 04-16 02:09 → MEDS 04-16 09:38 → SURS 04-18 16:56
PROVIDERS: Emergency Medicine; Family Medicine; Internal Medicine; Physician Assistant; Surgery; ADMIT Internal Medicine
PROC: 0D9670Z Drainage of Stomach with Drainage Device, Via Natural or Artificial Opening (ICD-10-PCS; 2024-04-16)
PROC: 0DB84ZZ Excision of Small Intestine, Percutaneous Endoscopic Approach (ICD-10-PCS; principal; 2024-04-18 11:00)
PROC: 0WQF4ZZ Repair Abdominal Wall, Percutaneous Endoscopic Approach (ICD-10-PCS; 2024-04-18 11:00)
DX: K43.0 Incisional hernia with obstruction, without gangrene (principal); E87.1 Hypo-osmolality and hyponatremia; I47.10 Supraventricular tachycardia, unspecified; K56.50 Intestinal adhesions [bands], unspecified as to partial versus complete obstruction; Z86.73 Personal history of transient ischemic attack (TIA), and cerebral infarction without residual deficits; E78.5 Hyperlipidemia, unspecified; K20.90 Esophagitis, unspecified without bleeding; Z85.048 Personal history of other malignant neoplasm of rectum, rectosigmoid junction, and anus; Z90.49 Acquired absence of other specified parts of digestive tract; Z93.3 Colostomy status; Z85.51 Personal history of malignant neoplasm of bladder; E78.00 Pure hypercholesterolemia, unspecified; Z98.890 Other specified postprocedural states; Z79.899 Other long term (current) drug therapy; Z88.8 Allergy status to other drugs, medicaments and biological substances; Z88.5 Allergy status to narcotic agent; F17.210 Nicotine dependence, cigarettes, uncomplicated; E87.6 Hypokalemia; E83.39 Other disorders of phosphorus metabolism; Z90.89 Acquired absence of other organs; J44.9 Chronic obstructive pulmonary disease, unspecified; Z99.3 Dependence on wheelchair
CPT/HCPCS: 36415; 74018; 74177; 74250; 80048; 80053; 80069; 81001; 82330; 83605; 83690; 83735; 83880; 84100; 84145; 84484; 85025; 88307; 93005; 93010; 93306; 93971; 94760; 94761; 96361; 96374-59; 96375; 97110; 97162; 99285-25; A9270; J0153; J0690; J1100; J1170; J1650; J1885; J2405; J2704; J3010; J3475; J3480; J7030; J7050; J7060; J7120; Q9967

== ENCOUNTER 2025-08-27 09:07 | Day surgery (SDC) | payer MEDICARE, OTHER ==
[2025-08-27] VITALS (11 sets, daily range): BP systolic 108–182; BP diastolic 45–70
[~2025-08-27] VITALS: Ht 160 cm; Wt 59.0 kg
[~2025-08-27 09:07] MED LIST changes: +Acetaminophen650 M1 PO; +CEFP200 PO; +ELIQUIS2.5 MG PO; +ELIQUIS5 M2 PO; +FAMO20 PO; +ONDA4 PO; +OXAYDO5 M1 PO; +POTASSIUM PHOSPHATE PO
[2025-08-27] MEDS ORDERED: TUDORZA PRESS400 MC1 IH (09:39)
[2025-08-27] MEDS ORDERED: PRAV20 PO ×2 (09:40)
[2025-08-27] MEDS ORDERED: CeFAZolin Sodium 1000 mg Vial ONE (10:09)
[2025-08-27] MEDS ORDERED: NS 50 ML IV ONE (10:10)
[2025-08-27] MEDS ORDERED: Heparin Sodium 1000 Units/ML 10ML MDV ONE ×3 (10:10→11:40)
[2025-08-27] MEDS ORDERED: NS 2,000 ML IV ONE (10:10)
[2025-08-27] MEDS ORDERED: NS 1,000 ML IV ONE (10:22)
[2025-08-27] MEDS ORDERED: Midazolam HCl 1MG / ML 2ML Vial ONE ×2 (10:45→11:30)
[2025-08-27] MEDS ORDERED: FentaNYL Citrate 50 MCG/ML 2 ML Injection ONE ×3 (10:45→11:50)
[2025-08-27] MEDS ORDERED: FLU VACC TS2025(65UP)/MF59C/PF 45 MCG/0.5 ML SYRINGE IM SCH (13:20)
--- NOTE | 2025-08-27 18:45 | NUR ---
Extended Recovery in PCU / Discharge Home Pt brought to PCU-7 by bed from heart center at approx 1230. Pt laying flat w/ R femoral access for pacer placement. Pt A&O x4. VSS. Spo2 > 92% on RA. Monitor showing SR, HR 70s. Pt w/ 3 runs of VTACH. Shed Hand aware. Pt BP elevated w/ pt report of chronic back pain. Pain medication provided per eMAR w/ pt denying improvement. Pt then able to sit up after 4H lying flat post procedure. Pt reporting significant improvement in pain w/ sitting up. BP then also significantly improved. Shed Hand to bedside for discussion w/ pt. Shed Hand w/ martha for pt to discharge home. Discharge instructions reviewed w/ pt & pt granddaughter at bedside. PIV removed. Pt taken out in wheelchair w/ belongings @ approx 1830. Pt R virgilio site WNL.
== END 2025-08-27 18:30 | disposition home or self-care (01) ==
LOC: MHTC 09:07 → PCU 12:55 → MHTC 18:30
DX: R00.1 Bradycardia, unspecified (principal); I49.5 Sick sinus syndrome; I44.2 Atrioventricular block, complete; I10 Essential (primary) hypertension; E78.5 Hyperlipidemia, unspecified; F17.200 Nicotine dependence, unspecified, uncomplicated; F11.20 Opioid dependence, uncomplicated; J44.9 Chronic obstructive pulmonary disease, unspecified; M19.90 Unspecified osteoarthritis, unspecified site; R54 Age-related physical debility; Z79.01 Long term (current) use of anticoagulants; Z79.899 Other long term (current) drug therapy; Z88.6 Allergy status to analgesic agent; Z99.3 Dependence on wheelchair
CPT/HCPCS: 33274; 76937; 99152; 99153; A9270; C1760; C1769; C1786; C1894; J0690; J1644; J2250; J3010; J7030; Q9967